=== PATIENT | female | born 1935 | race Caucasian/White ===

== ENCOUNTER 2018-11-27 11:40 | Emergency (ER) | payer OTHER ==
[~2018-11-27] VITALS: Ht 165.1 cm; Wt 73.5 kg
[2018-11-27 11:53] VITALS: BP_SYST 123
--- NOTE | 2018-11-27 12:00 | NUR ---
Patient presented to ER with abdominal pain. Patient A&Ox4, afebrile, denies N/V/D, pain 01/11. Patient states she has abdominal pain that radiates to back x1 week. Patietnbrought in by daughter, Patient states pain has been been increasing since whern she had outpatient Upper GI Scan. Patient has hx of liver stent
--- NOTE | 2018-11-27 12:02 | NUR ---
ER at bedside examining patient.
[2018-11-27] MEDS ORDERED: NACL 0.9% 1,000 ML IV ONE (12:06)
[2018-11-27] MEDS ORDERED: MORPHINE 4 MG/ML INJ. SYRINGE IVP ONE (12:15)
[2018-11-27] MEDS ORDERED: ONDANSETRON HCL 4 MG/2 ML VIAL IVP ONE (12:15)
--- NOTE | 2018-11-27 12:46 | NUR ---
REPORT TO DIMA KIM
[2018-11-27 13:13] LABS: BILIRUBIN,URINE NEGATIVE (NEGATIVE); BLOOD, URINE NEGATIVE (NEGATIVE); COLOR,URINE YELLOW (YELLOW); GLUCOSE,URINE NEGATIVE (NEGATIVE); KETONES,URINE NEGATIVE (NEGATIVE); LEUKOCYTE ESTERASE ,URINE TRACE (NEGATIVE); NITRITE, URINE NEGATIVE (NEGATIVE); PROTEIN URINE NEGATIVE (NEGATIVE); UROBILINOGEN,URINE 0.2 (0.2-1.0)
[2018-11-27 13:14] LABS: CLARITY/URINE SLIGHTLY HAZY (CLEAR)
[2018-11-27 13:15] LABS: HEMATOCRIT 29.8 % (36-48); HEMOGLOBIN 10.1 g/dL (12.0-16.0); MEAN CORPUSCULAR HEMOGLOBIN 36 pg (27-31); MEAN CORPUSCULAR HGB CONC 34 % (32-36); MEAN CORPUSCULAR VOLUME 105 fL (79.0-98.0); PLATELET COUNT (AUTO) 140 K/uL (130-430); RED BLOOD CELL COUNT(AUTO) 2.84 MIL/uL (4.2-6.2)
[2018-11-27 13:21] LABS: BACTERIA,URINE MODERATE /HPF (None Seen); RBC,URINE 0-3 /HPF (0-3)
[2018-11-27 13:38] LABS: CALCIUM 8.6 mg/dL (8.4-11.0); CHLORIDE 106 mmol/L (98-107); CREATININE 1.38 mg/dL (0.55-1.30); GLUCOSE 115 mg/dL (70-99); POTASSIUM 4.2 mmol/L (3.5-5.1); SODIUM SERUM 139 mmol/L (136-145); UREA NITROGEN, BLOOD 26 mg/dL (8-21)
[2018-11-27 13:39] LABS: ANION GAP < 3 (5-15)
--- NOTE | 2018-11-27 13:43 | NUR ---
Amanda marr in ED - 11/27/18 at [address] Cuevas at bedside discussing lab results with patient and daughter of patient.
--- NOTE | 2018-11-27 13:45 | NUR ---
Dr. Philip at bedside discussing lab results with patient and daughter of patient.
[2018-11-27 13:47] LABS: TOTAL BILIRUBIN 3.7 mg/dL (0.0-1.0)
[2018-11-27 13:48] LABS: ALANINE AMINOTRANSFERASE 30 U/L (12-78); ASPARTATE AMINOTRANSFERASE 66 U/L (10-37); LIPASE 144 U/L (73-393)
[2018-11-27 13:49] LABS: ATYPICAL LYMPHOCYTES % 0 % (0-0); BAND % (MANUAL) 0 % (0-6); BASOPHILS % (MANUAL) 0 % (0-2); EOSINOPHILS % (MANUAL) 7 % (0-7); LYMPHOCYTES % (MANUAL) 21 % (20-46); MONOCYTES % (MANUAL) 4 % (0-11)
[2018-11-27 14:45] VITALS: BP_SYST 123
--- NOTE | 2018-11-27 14:45 | NUR ---
Patient given written and verbal discharge instructions and verbalizes understanding. ER MD discussed with patient the results and treatment provided. Patient in stable condition. ID arm band removed. IV catheter removed intact and dressing applied, no active bleeding. Rx of Cipro, Flagyl given. Patient educated on pain management and to follow up with PMD. Pain Scale 3/10 tolerable for patient. Opportunity for questions provided and answered. Medication side effect fact sheet provided.
== END 2018-11-27 14:45 | disposition home or self-care (01) ==
LOC: SED 11:40
DX: K57.90 Diverticulosis of intestine, part unspecified, without perforation or abscess without bleeding (principal); Z90.710 Acquired absence of both cervix and uterus; Z91.041 Radiographic dye allergy status; Z91.013 Allergy to seafood; Z88.5 Allergy status to narcotic agent
CPT/HCPCS: 36415; 74176; 80053; 81000; 83690; 85007; 85027; 87086; 96374; 96375; 99284; J2270; J2405; J7030

== ENCOUNTER 2019-02-26 12:42 | Inpatient (IN) | payer OTHER ==
[~2019-02-26] VITALS: Ht 165.1 cm; Wt 74.5 kg
[2019-02-26 13:03] VITALS: BP_SYST 147
[2019-02-26] MEDS ORDERED: ASPIRIN 81 MG TAB.CHEW PO ONE (14:00)
[2019-02-26 14:36] LABS: BILIRUBIN,URINE 2+ (NEGATIVE); BLOOD, URINE NEGATIVE (NEGATIVE); CLARITY/URINE CLEAR (CLEAR); COLOR,URINE YELLOW (YELLOW); GLUCOSE,URINE NEGATIVE (NEGATIVE); KETONES,URINE NEGATIVE (NEGATIVE); LEUKOCYTE ESTERASE ,URINE NEGATIVE (NEGATIVE); NITRITE, URINE NEGATIVE (NEGATIVE); PH,URINE 5.5 (5.0-8.0); PROTEIN URINE NEGATIVE (NEGATIVE); UROBILINOGEN,URINE 0.2 (0.2-1.0)
[2019-02-26] MEDS ORDERED: FURO40SO5 PO (14:52)
[2019-02-26] MEDS ORDERED: MECL12.584 PO (14:52)
[2019-02-26] MEDS ORDERED: LACT10SO6 PO (14:52)
[2019-02-26] MEDS ORDERED: TIMO5DRO15 EACH EYE (14:52)
[2019-02-26] MEDS ORDERED: RIFA550T5 PO (14:52)
[2019-02-26] MEDS ORDERED: SPIR25TA6 PO (14:52)
[2019-02-26] MEDS ORDERED: PRO40 PO (14:52)
[2019-02-26 15:02] LABS: BACTERIA,URINE FEW /HPF (None Seen); RBC,URINE 0-3 /HPF (0-3)
[2019-02-26 15:03] LABS: MUCUS,URINE 1+ /LPF (None Seen)
[2019-02-26 15:28] LABS: BASOPHILS % (AUTO) 0.7 % (0.0-2.0); EOSINOPHILS # (AUTO) 0.1 K/uL (0.0-0.4); EOSINOPHILS % (AUTO) 2.9 % (0.0-4.0); HEMOGLOBIN 9.6 g/dL (12.0-16.0); LYMPHOCYTES # (AUTO) 0.6 K/uL (1.0-5.5); LYMPHOCYTES % (AUTO) 21.2 % (20.5-51.5); MEAN CORPUSCULAR HEMOGLOBIN 36 pg (27-31); MEAN CORPUSCULAR HGB CONC 34 % (32-36); MEAN CORPUSCULAR VOLUME 105 fL (79.0-98.0); MONOCYTES # (AUTO) 0.4 K/uL (0.0-1.0); MONOCYTES % (AUTO) 12.1 % (1.7-9.3); NEUTROPHILS # (AUTO) 1.8 K/uL (1.8-7.7); NEUTROPHILS % (AUTO) 63.1 % (40.0-70.0); PLATELET COUNT (AUTO) 67 K/uL (130-430); RED BLOOD CELL COUNT(AUTO) 2.68 MIL/uL (4.2-6.2); RED CELL DISTRIBUTION WIDTH 18.7 % (9.0-15.0); WHITE BLOOD COUNT (AUTO) 2.9 K/uL (4.8-10.8)
[2019-02-26] MEDS ORDERED: LEVOFLOXACIN 500 MG/D5W 100 ML IV ONE (15:30)
[2019-02-26 16:07] LABS: ANION GAP 6 (5-15); CALCIUM 8.2 mg/dL (8.4-11.0); CHLORIDE 102 mmol/L (98-107); CREATININE 1.39 mg/dL (0.55-1.30); GLUCOSE 181 mg/dL (70-99); POTASSIUM 3.9 mmol/L (3.5-5.1); SODIUM SERUM 136 mmol/L (136-145); UREA NITROGEN, BLOOD 24 mg/dL (8-21)
[2019-02-26 16:12] LABS: ALANINE AMINOTRANSFERASE 45 U/L (12-78); ALBUMIN 1.8 g/dL (3.4-4.8); ASPARTATE AMINOTRANSFERASE 108 U/L (10-37); TOTAL BILIRUBIN 4.5 mg/dL (0.0-1.0)
[2019-02-26 16:13] LABS: INR 1.7 (0.8-1.2)
[2019-02-26] MEDS ORDERED: NACL 0.9% 2,250 ML IV ONE (16:30)
[2019-02-26] MEDS ORDERED: LACTULOSE 20 GM/30 ML UDC PO ONE (16:30)
[2019-02-26 22:20] VITALS: BP_SYST 113
[2019-02-26] MEDS: RIFAXIMIN 550 MG TABLET PO SCH (23:36)
[2019-02-27 00:05] VITALS: BP_SYST 139
[2019-02-27] MEDS: cefTRIAXone 1 GM IVPB PREMIX 50 ML IV SCH ×2 (06:00→13:32)
[2019-02-27 07:23] LABS: BASOPHILS % (AUTO) 1.1 % (0.0-2.0); EOSINOPHILS # (AUTO) 0.1 K/uL (0.0-0.4); EOSINOPHILS % (AUTO) 2.7 % (0.0-4.0); HEMATOCRIT 26.3 % (36-48); HEMOGLOBIN 9.1 g/dL (12.0-16.0); LYMPHOCYTES # (AUTO) 0.6 K/uL (1.0-5.5); LYMPHOCYTES % (AUTO) 27.1 % (20.5-51.5); MEAN CORPUSCULAR HEMOGLOBIN 36 pg (27-31); MEAN CORPUSCULAR HGB CONC 35 % (32-36); MEAN CORPUSCULAR VOLUME 104 fL (79.0-98.0); MONOCYTES # (AUTO) 0.3 K/uL (0.0-1.0); NEUTROPHILS # (AUTO) 1.2 K/uL (1.8-7.7); NEUTROPHILS % (AUTO) 57.1 % (40.0-70.0); RED BLOOD CELL COUNT(AUTO) 2.53 MIL/uL (4.2-6.2); RED CELL DISTRIBUTION WIDTH 19.1 % (9.0-15.0); WHITE BLOOD COUNT (AUTO) 2.1 K/uL (4.8-10.8)
[2019-02-27 07:55] VITALS: BP_SYST 151
[2019-02-27 08:24] LABS: PLATELET COUNT (AUTO) 55 K/uL (130-430)
[2019-02-27] MEDS: SPIRONOLACTONE 25 MG TABLET (ALDACTONE) PO SCH (09:00)
[2019-02-27 09:28] LABS: ANION GAP 3 (5-15); CHLORIDE 105 mmol/L (98-107); GLUCOSE 96 mg/dL (70-99); POTASSIUM 3.8 mmol/L (3.5-5.1); SODIUM SERUM 136 mmol/L (136-145)
[2019-02-27 09:29] LABS: ASPARTATE AMINOTRANSFERASE 109 U/L (10-37); CALCIUM 7.9 mg/dL (8.4-11.0); CREATININE 1.36 mg/dL (0.55-1.30); TOTAL BILIRUBIN 3.4 mg/dL (0.0-1.0); UREA NITROGEN, BLOOD 21 mg/dL (8-21)
[2019-02-27 09:30] LABS: ALANINE AMINOTRANSFERASE 52 U/L (12-78); ALBUMIN 1.6 g/dL (3.4-4.8)
[2019-02-27 09:31] LABS: CHOLESTEROL 136 mg/dL (<200); HDL CHOLESTEROL 17 mg/dL (>55); LDL CHOLESTEROL 82 mg/dL (<100); TRIGLYCERIDES 55 mg/dL (30-150)
[2019-02-27 10:45] VITALS: BP_SYST 120
[2019-02-27] MEDS: RIFAXIMIN 550 MG TABLET PO SCH ×2 (11:01→21:01)
[2019-02-27] MEDS: LACTULOSE 20 GM/30 ML UDC PO SCH ×3 (11:01→21:01)
[2019-02-27] MEDS: PANTOPRAZOLE SODIUM 40 MG TAB PO SCH (11:02)
[2019-02-27 12:00] VITALS: BP_SYST 177
[2019-02-27 16:12] VITALS: BP_SYST 122
[2019-02-27 19:25] VITALS: BP_SYST 120
[2019-02-27] MEDS: TIMOLOL MALEATE 0.25% OPHTHALMIC DROPS 5 ML OP SCH (21:02)
[2019-02-28 01:25] VITALS: BP_SYST 121
[2019-02-28 01:32] VITALS: BP_SYST 106
[2019-02-28 07:37] VITALS: BP_SYST 113
[2019-02-28] MEDS: LACTULOSE 20 GM/30 ML UDC PO SCH (08:41)
[2019-02-28] MEDS: RIFAXIMIN 550 MG TABLET PO SCH (08:41)
[2019-02-28] MEDS: PANTOPRAZOLE SODIUM 40 MG TAB PO SCH (08:42)
[2019-02-28] MEDS: SPIRONOLACTONE 25 MG TABLET (ALDACTONE) PO SCH (08:42)
[2019-02-28] MEDS: TIMOLOL MALEATE 0.25% OPHTHALMIC DROPS 5 ML OP SCH (08:43)
[2019-02-28] MEDS ORDERED: LEVO500T89 PO (09:05)
[2019-02-28 12:05] VITALS: BP_SYST 114
[2019-02-28 12:53] VITALS: BP_SYST 114
[2019-02-28 12:55] VITALS: BP_SYST 114
[2019-02-28] MEDS ORDERED: cefTRIAXone 1 GM IVPB PREMIX 50 ML IV SCH (13:00)
== END 2019-02-28 13:45 | disposition home or self-care (01) | DRG 690 ==
LOC: SED 12:42 → STU 17:49
PROVIDERS: ADMIT Internal Medicine Hospice and Palliative Medicine; ATTEND Internal Medicine Hospice and Palliative Medicine
DX: N39.0 Urinary tract infection, site not specified (principal); D61.818 Other pancytopenia; E87.2 Acidosis; D68.9 Coagulation defect, unspecified; E44.1 Mild protein-calorie malnutrition; K72.90 Hepatic failure, unspecified without coma; R07.89 Other chest pain; D69.6 Thrombocytopenia, unspecified; N28.9 Disorder of kidney and ureter, unspecified; K74.60 Unspecified cirrhosis of liver; Z79.899 Other long term (current) drug therapy; Z91.041 Radiographic dye allergy status; Z88.5 Allergy status to narcotic agent; Z91.013 Allergy to seafood
CPT/HCPCS: 36415; 71045; 76700-TC; 80053; 80061; 81000-TC; 82140-TC; 83605; 84484; 85025; 85610-TC; 85730-TC; 87040-TC; 87081; 87086; 87186-TC; 93005; 93306; 96361; 96365; 99285; G0378; J0696; J1956

== ENCOUNTER 2019-05-07 10:20 | Inpatient (IN) | payer OTHER, MEDICAID ==
[~2019-05-07] VITALS: Ht 165.1 cm; Wt 74.8 kg
[~2019-05-07 10:20] MED LIST: FURO40SO5 PO; LACT10SO6 PO; LEVO500T89 PO; MECL12.584 PO; PRO40 PO; RIFA550T5 PO; SPIR25TA6 PO; TIMO5DRO15 EACH EYE
[2019-05-07 10:25] VITALS: BP_SYST 117
--- NOTE | 2019-05-07 10:28 | NUR ---
Patient to ER bed 7 to gown for evaluation. Side rails up.
[2019-05-07] MEDS ORDERED: NACL 0.9% 1,000 ML IV ONE (10:32)
--- NOTE | 2019-05-07 10:35 | NUR ---
ER at bedside examining patient.
--- NOTE | 2019-05-07 10:37 | NUR ---
pt arrives via BLS d/t BLE edema +2, and BLE 10/10 pain. Pt is AAOx3. Currently unable to ambulate s/t pain. Pt has hx of liver cirrhosis. BUE and BLE brusing noted. Will continue to monitor
[2019-05-07] MEDS ORDERED: FUROSEMIDE 40 MG/4 ML VIAL IVP ONE (10:45)
[2019-05-07 11:53] LABS: HEMATOCRIT 25.6 % (36-48); HEMOGLOBIN 8.5 g/dL (12.0-16.0); MEAN CORPUSCULAR HEMOGLOBIN 34 pg (27-31); MEAN CORPUSCULAR HGB CONC 33 % (32-36); MEAN CORPUSCULAR VOLUME 102 fL (79.0-98.0); PLATELET COUNT (AUTO) 77 K/uL (130-430); RED CELL DISTRIBUTION WIDTH 18.2 % (9.0-15.0); WHITE BLOOD COUNT (AUTO) 3.1 K/uL (4.8-10.8)
--- NOTE | 2019-05-07 12:00 | NUR ---
# 24 gauge angiocath placed to left chest. Use of asceptic technique. Opsite placed over site. Blood return noted. Blood for lab drawn from site. Flushed with 10 cc of normal saline. No evidence of infiltration noted. Patient tolerated well.
[2019-05-07 12:05] LABS: ANION GAP 7 (5-15); CALCIUM 8.3 mg/dL (8.4-11.0); CHLORIDE 103 mmol/L (98-107); CREATININE 2.49 mg/dL (0.55-1.30); GLUCOSE 100 mg/dL (70-99); POTASSIUM 4.2 mmol/L (3.5-5.1); SODIUM SERUM 137 mmol/L (136-145); UREA NITROGEN, BLOOD 62 mg/dL (8-21)
[2019-05-07 12:09] LABS: INR 1.6 (0.8-1.2); PROTHROMBIN TIME 15.6 SECS (9.5-12.5)
--- NOTE | 2019-05-07 12:15 | NUR ---
urine collected and sent to the lab
[2019-05-07 12:19] LABS: ALANINE AMINOTRANSFERASE 38 U/L (12-78); ALBUMIN 1.9 g/dL (3.4-4.8); AMYLASE 76 U/L (0-100); ASPARTATE AMINOTRANSFERASE 66 U/L (10-37); LIPASE 169 U/L (73-393); TOTAL BILIRUBIN 4.4 mg/dL (0.0-1.0)
[2019-05-07 12:20] LABS: ALCOHOL, BLOOD < 3 mg/dL (<10)
[2019-05-07 12:28] LABS: ATYPICAL LYMPHOCYTES % 0 % (0-0); BAND % (MANUAL) 0 % (0-6); BASOPHILS % (MANUAL) 0 % (0-2); EOSINOPHILS % (MANUAL) 2 % (0-7); LYMPHOCYTES % (MANUAL) 16 % (20-46); MONOCYTES % (MANUAL) 5 % (0-11)
[2019-05-07 13:13] LABS: BILIRUBIN,URINE NEGATIVE (NEGATIVE); BLOOD, URINE NEGATIVE (NEGATIVE); CLARITY/URINE CLEAR (CLEAR); COLOR,URINE YELLOW (YELLOW); GLUCOSE,URINE NEGATIVE (NEGATIVE); KETONES,URINE NEGATIVE (NEGATIVE); LEUKOCYTE ESTERASE ,URINE 1+ (NEGATIVE); NITRITE, URINE NEGATIVE (NEGATIVE); PROTEIN URINE NEGATIVE (NEGATIVE); UROBILINOGEN,URINE 0.2 (0.2-1.0)
[2019-05-07 13:25] LABS: BACTERIA,URINE FEW /HPF (None Seen); MUCUS,URINE 1+ /LPF (None Seen); RBC,URINE 0-3 /HPF (0-3)
[2019-05-07 13:42] LABS: BARBITURATE, URINE NEGATIVE (NEG <=200); BENZODIAZEPINE, URINE NEGATIVE (NEG <=150); CANNABINOID, URINE NEGATIVE (NEG <=50); COCAINE, URINE NEGATIVE (NEG <=150); METHAMPHETAMINES SCREEN,URINE NEGATIVE (NEG <=500); OPIATE, URINE NEGATIVE (NEG <=100); PHENCYCLIDINE SCREEN,URINE NEGATIVE (NEG <=25); UR TRICYCLIC ANTIDEPRESSANTS NEGATIVE (NEG <=300); URINE AMPHETAMINE NEGATIVE (NEG <=500); URINE METHADONE NEGATIVE (NEG <=200); URINE OXYCODONE SCREEN NEGATIVE (NEG <=100); URINE PROPOXYPHENE SCREEN NEGATIVE (NEG <=300)
[2019-05-07] MEDS ORDERED: cefTRIAXone 1 GM IVPB PREMIX 50 ML IV ONE (13:45)
--- NOTE | 2019-05-07 14:00 | NUR ---
pt is resting in [facility]
--- NOTE | 2019-05-07 15:30 | NUR ---
Called for a tele bed spoke w/ Tobin KIM. Stated that she will call back
[2019-05-07] MEDS ORDERED: LISI-209 PO (16:00)
[2019-05-07] MEDS ORDERED: MAGN400T10 PO (16:00)
--- NOTE | 2019-05-07 16:00 | NUR ---
Medication reconciliation completed with information provided by pt. Any prior medication reconciliation on file was reviewed and corrected.
[2019-05-07 17:00] VITALS: BP_SYST 125
--- NOTE | 2019-05-07 17:00 | NUR ---
Note Pt arrived on the floor from ED via gurney to room - assisted to bed. Pt was oriented to room, nursing routines and procedures. Questions/concerns were answered at this time. Call light within reach.
[2019-05-07 17:08] VITALS: BP_SYST 125
[2019-05-07] MEDS: FUROSEMIDE 40 MG/4 ML VIAL IVP SCH (19:00)
--- NOTE | 2019-05-07 19:00 | NUR ---
Note Pt's admission assessment was completed with assistance from pt's 2 daughters. Pt's skin very fragile for IV draws and BP taking. Pt sat up in bed and ate her dinner with assistance from her family (4 family members at bedside at this time). Pt's lower extremity part of bed elevated for comfort. Pt was checked on q1' and PRN all shift for needs and care. Call light within reach. Pt had tele unit attached on admission to floor at 1700. Tele unit at this time is attached and intact. IV in left upper chest wall intact and patent at this time. Pt next to nurses' station all shift for needs and care.
--- NOTE | 2019-05-07 19:55 | NUR ---
Initial note: Received report from dayshift RN. Patient is awake in bed, family members present at bedside. Alert and oriented to name, place, and situation. 24 gauge IV present to left upper chest, site flushes well, no infiltration. Bruising noted to bilateral upper and lower extremities, patient's skin is fragile. Call light is with patient. Safety and fall precautions in place. Will continue with plan of care.
--- NOTE | 2019-05-07 20:20 | NUR ---
CONSULT: CONSULT CALLED FOR DR. MICHAEL I SPOKE WITH ANSLEY NICHOLS REASON FOR CONSULT: CHF REQUESTING CONSULT: DR. CHU BELT PRESS OPERATOR PHONE NUMBER: [phone]
[2019-05-07 20:45] VITALS: BP_SYST 113
[2019-05-07] MEDS: PANTOPRAZOLE SODIUM 40 MG TAB PO SCH (21:00)
[2019-05-07] MEDS: LACTULOSE 20 GM/30 ML UDC PO SCH (21:00)
[2019-05-07] MEDS: RIFAXIMIN 550 MG TABLET PO SCH (21:00)
--- NOTE | 2019-05-07 23:20 | NUR ---
Rounds: Patient is resting in bed, does not show any acute distress. Even and unlabored respirations. Call light with patient. Will continue to monitor.
[2019-05-08 00:29] VITALS: BP_SYST 114
--- NOTE | 2019-05-08 01:38 | NUR ---
CONSULTATION PAGED/CALLED Reason for Consultation: LIVER CIRHOSIS Person Who was Notified: JAY Consulting Physician: SHARA LEAHY TROUNG IS WELDER PRODUCTION LINE COMBINATION Electric Blanket Wirer Specialty: Ordering Physician: KIMBERLEY
--- NOTE | 2019-05-08 03:30 | NUR ---
Rounds: Patient is asleep, no acute distress. Tolerating room air. Call light with patient. Will continue monitoring.
[2019-05-08] MEDS: FUROSEMIDE 40 MG/4 ML VIAL IVP SCH ×2 (06:37→20:55)
--- NOTE | 2019-05-08 06:48 | NUR ---
Closing note: Patient is resting in bed, no acute distress. Tolerating room air. IV site to left upper chest is patent and benign. All needs met. Safety, fall precautions maintained. Hourly rounding performed throughout shift. Will endorse care to dayshift RN.
--- NOTE | 2019-05-08 07:50 | NUR ---
AM ASSESSMENT. PT ALERT, ORIENTED, BODY WITH GENERALIZED WEAKNESS, HELPED PT TURNED IN BED, SAT HER UP AT BREAKFAST HOUR, CALL LIGHT IN REACH, CONTINUE TO MONITOR.
[2019-05-08 08:00] VITALS: BP_SYST 115
[2019-05-08] MEDS: LACTULOSE 20 GM/30 ML UDC PO SCH ×3 (08:18→20:57)
[2019-05-08] MEDS: SPIRONOLACTONE 25 MG TABLET (ALDACTONE) PO SCH (08:19)
[2019-05-08] MEDS: PANTOPRAZOLE SODIUM 40 MG TAB PO SCH ×2 (08:19→20:55)
[2019-05-08] MEDS: LISINOPRIL 5 MG TABLET PO SCH (08:19)
[2019-05-08] MEDS: RIFAXIMIN 550 MG TABLET PO SCH ×2 (08:24→20:55)
--- NOTE | 2019-05-08 10:49 | NUR ---
CONSULT NEPHROLOGY RENAL FAILURE DR HILL [phone] S/W SALVADOR NICHOLS
--- NOTE | 2019-05-08 11:08 | NUR ---
ROOM CHANGE. TRANSFERRED PT TO ROOM 104-B, HER DAUGHTERS AWARE.
[2019-05-08 12:00] VITALS: BP_SYST 119
[2019-05-08 16:00] VITALS: BP_SYST 117
--- NOTE | 2019-05-08 16:00 | NUR ---
HYGIENE. PT VERBALIZED THAT SHE HAD A BOWEL MOVEMENT, PERINEAL CARE DONE, WASHED WITH SOAPY TOWEL, RINSED SKIN AND PAT DRY. CLEAN SHEETS PROVIDED, TURNED PT TO HER SIDE.
--- NOTE | 2019-05-08 18:50 | NUR ---
PICC. TIME OUT DONE AT BEDSIDE, CONSENT SIGNED, WITH FAMILY WATCHING IN THE ROOM.
--- NOTE | 2019-05-08 20:00 | NUR ---
INITIAL NOTES; PT IS ALERT , AWAKE AND ORIENTED ; NOT IN ANY ACUTE DISTRESS; VITALS ARE STABLE ; DAUGHTER AT BEDSIDE ; PICC LINE WAS INSERTED , PER PICC LINE NURSE PICC OK TO USE X RAY WAS DONE . DCD IV TO THE LEFT BREAST ;DRESSING APPLIED , PT IS INCONTINENT WITH LOOSE BM ; PT CLEANED ; LINEN AND GOWN CHANGED ; ASSESSMENT DONE ; PT HAS SKIN TEAR TO SHERIN R FA ,4 CM X 2.6 CM CLEANED WITH NS APPLIED OIL EMULSION DRESSING AND COVERED WITH NON ADHERENT DRESSING ; PER DAUGHTER IT HAPPENED IN ER , ALSO NOTICED ANOTHER DRESSING ON THE R AC , PT REFUSED TO OPEN IT PER DAUGHTER IT ALSO HAPPENED IN ER , UNABLE TO SEE SITE . BED IN LOW AND LOCK POSITION , CALL ADAMS IN REACH ; ENCOURAGED PT TO CALL FOR ANY HELP ;WILL CONTINUE TO MONITOR PT . NOTICED THAT PT IS HAVING PAIN WHILE TOUCHING HER OTHERWISE SHE IS COMFORTABLE .
[2019-05-08 20:55] VITALS: BP_SYST 118
--- NOTE | 2019-05-08 21:00 | NUR ---
MEDICATION: DUE MEDS GIVEN ; PT IS COMFORTABLE ; EDUCATED PT ON LASIX , NO QUESTIONS AT THIS TIME ; WILL CONTINUE TO MONITOR PT . Addendum: 05/09/19 at 0223 by Monroe Sharma RN PT REFUSED LACTULOSE , PT STATED SHE HAD MULTIPLE LOOSE BM AND SHE IS TIRED AT THIS TIME SHE STATED SHE WILL TAKE IT IN MORNING AGAIN .
--- NOTE | 2019-05-08 22:40 | NUR ---
BM : PT IS INCONTINENT WITH LOOSE BM ; PT CLEANED , LINEN REMOVED . PT TURNED AND REPOSITIONED ; WILL CONTINUE TO MONITOR PT .
--- NOTE | 2019-05-09 00:10 | NUR ---
RN NOTES: PT IS SLEEPING , NOT IN ANY ACUTE DISTRESS ; RESPIRATION IS EVEN AND NONLABORED ; WILL CONTINUE TO MONITOR PT .
[2019-05-09 00:46] VITALS: BP_SYST 128
--- NOTE | 2019-05-09 02:24 | NUR ---
RN ROUNDS: PT IS SLEEPING , RESPIRATION IS EVEN AND NON LABORED ; WILL CONTINUE TO MONITOR PT .
--- NOTE | 2019-05-09 04:30 | NUR ---
RN ROUNDS: PT IS SLEEPING , RESPIRATION IS EVEN AND NON LABORED ; NOT IN ANY ACUTE DISTRESS ;WILL CONTINUE TO MONITOR PT .
[2019-05-09] MEDS: FUROSEMIDE 40 MG/4 ML VIAL IVP SCH ×2 (06:19→18:06)
--- NOTE | 2019-05-09 06:20 | NUR ---
MEDICATION: DUE MEDS GIVEN , PT WAS SLEEPING , EASILY AROUSABLE ; VITALS ARE STABLE ; WILL CONTINUE TO MONITOR PT .
--- NOTE | 2019-05-09 07:30 | NUR ---
CLOSING NOTES: PT IS COMFORTABLE ; NOT IN ANY ACUTE DISTRESS ; ALL NEED ATTENDED . WILL CONTINUE TO MONITOR AND WILL ENDORSE TO NEXT SHIFT NURSE .
--- NOTE | 2019-05-09 07:55 | NUR ---
Opening Note Received report from RN. Pt AAO eating breakfast. Also just informed about abdominal ultrasound, instructed pt about NPO status. Pt states no pain or distress at this time.
[2019-05-09 08:00] VITALS: BP_SYST 113
--- NOTE | 2019-05-09 08:55 | NUR ---
Nutrition Update Shay Scale 16 noted. Pt admitted for anasarca, liver cirrhosis. Diet: 2 gm Na BMI: 27.5 kg/m2 RD to follow per nutrition care standards.
[2019-05-09] MEDS: SPIRONOLACTONE 25 MG TABLET (ALDACTONE) PO SCH (09:00)
[2019-05-09] MEDS: RIFAXIMIN 550 MG TABLET PO SCH ×2 (09:00→20:14)
[2019-05-09] MEDS: LISINOPRIL 5 MG TABLET PO SCH (09:00)
[2019-05-09] MEDS: LACTULOSE 20 GM/30 ML UDC PO SCH ×3 (09:00→20:15)
[2019-05-09] MEDS: PANTOPRAZOLE SODIUM 40 MG TAB PO SCH ×2 (09:00→20:14)
[2019-05-09 10:49] LABS: ANION GAP 6 (5-15); CALCIUM 8.2 mg/dL (8.4-11.0); CHLORIDE 105 mmol/L (98-107); CREATININE 1.84 mg/dL (0.55-1.30); GLUCOSE 205 mg/dL (70-99); POTASSIUM 4.6 mmol/L (3.5-5.1); SODIUM SERUM 139 mmol/L (136-145); UREA NITROGEN, BLOOD 52 mg/dL (8-21)
[2019-05-09 11:02] LABS: BASOPHILS % (AUTO) 0.7 % (0.0-2.0); EOSINOPHILS # (AUTO) 0.1 K/uL (0.0-0.4); EOSINOPHILS % (AUTO) 2.3 % (0.0-4.0); HEMATOCRIT 22.9 % (36-48); HEMOGLOBIN 7.7 g/dL (12.0-16.0); LYMPHOCYTES # (AUTO) 0.4 K/uL (1.0-5.5); LYMPHOCYTES % (AUTO) 16.5 % (20.5-51.5); MEAN CORPUSCULAR HEMOGLOBIN 35 pg (27-31); MEAN CORPUSCULAR HGB CONC 34 % (32-36); MEAN CORPUSCULAR VOLUME 104 fL (79.0-98.0); MONOCYTES # (AUTO) 0.3 K/uL (0.0-1.0); MONOCYTES % (AUTO) 10.1 % (1.7-9.3); NEUTROPHILS # (AUTO) 1.8 K/uL (1.8-7.7); NEUTROPHILS % (AUTO) 70.4 % (40.0-70.0); PLATELET COUNT (AUTO) 63 K/uL (130-430); RED CELL DISTRIBUTION WIDTH 18.8 % (9.0-15.0)
[2019-05-09 11:04] LABS: ALANINE AMINOTRANSFERASE 31 U/L (12-78); ALBUMIN 1.6 g/dL (3.4-4.8); ASPARTATE AMINOTRANSFERASE 60 U/L (10-37); THYROID STIMULATING HORMONE 2.15 uIu/mL (0.36-3.74); TOTAL BILIRUBIN 3.5 mg/dL (0.0-1.0)
[2019-05-09 11:21] VITALS: BP_SYST 111
[2019-05-09 11:22] LABS: WHITE BLOOD COUNT (AUTO) 2.6 K/uL (4.8-10.8)
--- NOTE | 2019-05-09 12:00 | NUR ---
Pt resting comfortably in bed. Equal chest rise and fall. No acute distress noted.
--- NOTE | 2019-05-09 14:58 | NUR ---
Nutrition Assessment (short note d/t high patient load) A - RD reviewed pertinent nutrition-related info via EMR (physician notes/nursing notes/labs/meds/nursing care trends/care activity). Admission Dx: Anasarca, liver cirrhosis Pt also found w/ ARF per physician notes PMH: liver cirrhosis per physician notes Current Diet Order/Nutrition Support: 2 gm Na x2 days Ht: 65", 5';5" Wt: 165#/75 kg IBW: 125#/57 kg %IBW: 132% UBW: 170#/77 kg %UBW: 97% BMI: 27.5 kg/m2 (overweight, but appropriate for geriatric age) Subjective Info: Pt seen high risk d/t Dx of ARF. Daughter at bedside answered RD verbal interview questions as pt prefers to speak in [place]. Daughter stated that pt usually has a small appetite and does not eat much. MVI and occasional Boost ONS supplementation use VISITOR INFORMATION ASSISTANT. Anthropometrics verified. MIDDLE SCHOOL GUIDANCE COUNSELOR stated pt is NPO d/t pending test -- abd US per physician order. Allergy to fish/shellfish confirmed. Per EMR, PO intake records indicate 50% average x4 meals, x1 refusal. ESTIMATED NUTRITIONAL NEEDS CALORIES/DAY: 9364-5382 kcal/day (25-30 kcal/kg Adj IBW for geriatric maintenance) PROTEIN/DAY: 49-61 gm/day (0.8-1 gm/kg Adj IBW for ARF, geriatric maintenance) FLUID/DAY: Per physician for ARF D - Altered nutrition-related labs related to renal dysfunction as evidenced by abnormal BUN/CRE lab values. Inadequate nutritional intakes related to lack of appetite as evidenced by fair PO intake records. I - Recommend continuing 2 gm Na diet M - Monitor appetite and PO intakes w/ goal of pt meeting at least 75% of estimated nutritional needs, labs trending WNL, normal GI function, and skin integrity/wt maintenance E - Moderate risk; RD to F/U within 3-5 days
[2019-05-09 15:05] VITALS: BP_SYST 117
--- NOTE | 2019-05-09 15:06 | NUR ---
Dietitian Recommendations * Recommend continuing 2 gm Na diet LP, RD Please refer to Nutrition Assessment for details.
[2019-05-09] MEDS: cefTRIAXone 1 GM IVPB PREMIX 50 ML IV SCH (15:40)
--- NOTE | 2019-05-09 16:30 | NUR ---
Provided wound care and education to pt and family. Tolerated well.
[2019-05-09] MEDS: HYDROcodone/ACETAMIN 5-325 MG TAB (NORCO/ VICODIN) PO PRN (18:08)
--- NOTE | 2019-05-09 18:39 | NUR ---
Closing Pt up in bed eating dinner. Provided pt with PRN pain medication, educated pt and family to look out for signs of reaction, states understanding. No other complaints per pt.
[2019-05-09 19:30] VITALS: BP_SYST 110
--- NOTE | 2019-05-09 19:30 | NUR ---
INITIAL NOTES PATIENT IS SITTING IN BED AND STABLE. NO S/S OF RESPIRATORY DISTRESS NOTED. FAMILY IS BY BEDSIDE. PLAN OF CARE IS DISCUSSED WITH FAMILY AND PATIENT AT THIS TIME. PATIENT SUCCESSFULLY DEMONSTRATES USAGE OF CALL LIGHT AT THIS TIME. BED IS LOCKED, ALARMED, AND AT THE LOWEST POSITION. FALL, SAFETY, ASPIRATION, AND RESPIRATORY PRECAUTIONS WILL BE IN PLACE THROUGHOUT THE SHIFT. PATIENT VERBALIZES NO PAIN.
--- NOTE | 2019-05-09 21:30 | NUR ---
ROUNDING PATIENT IS SLEEPING IN BED AND STABLE. NO S/S OF RESPIRATORY DISTRESS NOTED. CALL LIGHT IN REACH. BED IS LOCKED, ALARMED, AND AT THE LOWEST POSITION.
[2019-05-10 00:05] VITALS: BP_SYST 105
[2019-05-10] MEDS: FUROSEMIDE 40 MG/4 ML VIAL IVP SCH ×2 (06:46→18:06)
[2019-05-10 07:12] LABS: BASOPHILS % (AUTO) 0.7 % (0.0-2.0); EOSINOPHILS # (AUTO) 0.1 K/uL (0.0-0.4); EOSINOPHILS % (AUTO) 3.1 % (0.0-4.0); HEMATOCRIT 22.9 % (36-48); HEMOGLOBIN 7.7 g/dL (12.0-16.0); LYMPHOCYTES # (AUTO) 0.6 K/uL (1.0-5.5); MEAN CORPUSCULAR HEMOGLOBIN 35 pg (27-31); MEAN CORPUSCULAR HGB CONC 34 % (32-36); MEAN CORPUSCULAR VOLUME 103 fL (79.0-98.0); MONOCYTES # (AUTO) 0.3 K/uL (0.0-1.0); NEUTROPHILS # (AUTO) 1.4 K/uL (1.8-7.7); PLATELET COUNT (AUTO) 52 K/uL (130-430); RED BLOOD CELL COUNT(AUTO) 2.21 MIL/uL (4.2-6.2); RED CELL DISTRIBUTION WIDTH 18.7 % (9.0-15.0); WHITE BLOOD COUNT (AUTO) 2.3 K/uL (4.8-10.8)
--- NOTE | 2019-05-10 07:20 | NUR ---
CLOSING NOTES PATIENT IS STABLE AND LAYING IN BED. NO S/S OF RESPIRATORY DISTRESS NOTED. CALL LIGHT IN REACH. BED IS LOCKED, ALARMED, AND AT THE LOWEST POSITION. FALL, SAFETY, ASPIRATION, AND RESPIRATORY PRECAUTIONS HAS BEEN PLACED THROUGHOUT THE SHIFT. REPORT WAS GIVEN TO JUDY GARCIA BY BEDSIDE.
--- NOTE | 2019-05-10 07:22 | NUR ---
INITIAL NOTE PT RESTING QUIETLY IN BED, NO ACUTE DISTRESS NOTED, BREATHING EVEN AND UNLABORED. IV SALINE LOCKED. CALL LIGHT WITHIN REACH, BED IN LOW AND LOCKED POSITION WITH BED ALARM ON.
[2019-05-10 07:24] LABS: ALANINE AMINOTRANSFERASE 30 U/L (12-78); ALBUMIN 1.4 g/dL (3.4-4.8); ANION GAP 3 (5-15); ASPARTATE AMINOTRANSFERASE 60 U/L (10-37); CALCIUM 8.5 mg/dL (8.4-11.0); CHLORIDE 106 mmol/L (98-107); CREATININE 1.73 mg/dL (0.55-1.30); GLUCOSE 108 mg/dL (70-99); POTASSIUM 4.3 mmol/L (3.5-5.1); SODIUM SERUM 136 mmol/L (136-145); TOTAL BILIRUBIN 3.6 mg/dL (0.0-1.0); UREA NITROGEN, BLOOD 51 mg/dL (8-21)
[2019-05-10 07:56] LABS: NEUTROPHILS % (AUTO) 58.2 % (40.0-70.0)
[2019-05-10 08:00] VITALS: BP_SYST 113
[2019-05-10] MEDS: cefTRIAXone 1 GM IVPB PREMIX 50 ML IV SCH (09:03)
[2019-05-10] MEDS: SPIRONOLACTONE 25 MG TABLET (ALDACTONE) PO SCH (09:03)
[2019-05-10] MEDS: LACTULOSE 20 GM/30 ML UDC PO SCH ×3 (09:03→20:21)
[2019-05-10] MEDS: RIFAXIMIN 550 MG TABLET PO SCH ×2 (09:03→20:21)
[2019-05-10] MEDS: PANTOPRAZOLE SODIUM 40 MG TAB PO SCH ×2 (09:04→20:21)
[2019-05-10] MEDS: LISINOPRIL 5 MG TABLET PO SCH (09:04)
--- NOTE | 2019-05-10 09:30 | NUR ---
INCONTINENT PT HAD BOWEL MOVEMENT, CHANGED PT. REPOSITIONED FOR COMFORT. PT TOLERATED WELL.
--- NOTE | 2019-05-10 10:12 | NUR ---
DR. CHU SPOKE WITH MD AT NURSES STATION. INFORMED MD THAT PT STATES THAT SHE HAS NOT BEEN ABLE TO WALK IN 2 MONTHS AND HAS HISTORY OF FALLS. MD TO POSTPONE DISCHARGE AND ORDER STAT PHYSICAL THERAPY EVALUATIONS FOR POSSIBLE SNF PLACEMENT.
--- NOTE | 2019-05-10 11:30 | NUR ---
RN ROUNDS PT RESTING QUIETLY IN BED, FAMILY AT BEDSIDE. WILL CONTINUE TO MONITOR.
--- NOTE | 2019-05-10 12:15 | NUR ---
PHYSICAL THERAPY PHYSICAL THERAPY AT BEDSIDE. PER PHYSICAL THERAPY, PT WAS UNABLE TO SUCCESSFULLY GET OUT OF BED. PT HAS LOWER EXTREMITY PAIN AND WEAKNESS.
[2019-05-10 12:47] VITALS: BP_SYST 110
--- NOTE | 2019-05-10 13:30 | NUR ---
RN ROUNDS PT AWAKE, SPEAKING WITH FAMILY AT BEDSIDE. NO CHANGE IN ASSESSMENT.
[2019-05-10] MEDS: HYDROcodone/ACETAMIN 5-325 MG TAB (NORCO/ VICODIN) PO PRN ×2 (15:29→23:36)
--- NOTE | 2019-05-10 15:30 | NUR ---
PAIN MEDICATIONS PT COMPLAINING OF LOWER EXTREMITY PAIN. EDUCATED PT ON USES AND SIDE EFFECTS OF NORCO, PT VERBALIZED UNDERSTANDING. PRN NORCO ADMINISTERED. WILL CONTINUE TO MONITOR.
[2019-05-10 16:00] VITALS: BP_SYST 101
--- NOTE | 2019-05-10 16:00 | NUR ---
DR. PARIKH SPOKE W/ VIA PHONE, INFORMED MD THAT PT WAS SEEN BY PHYSICAL THERAPY, PT WAS UNABLE TO WALK DUE TO WEAKNESS AND LOWER EXTREMITY PAIN, PT WAS SEEN BY BEND UP DR. MICHAEL. TO FOLLOW UP WITH DR. MICHAEL. NO ORDERS FOR DISCHARGE AT THIS TIME.
--- NOTE | 2019-05-10 18:30 | NUR ---
WOUND CARE WOUND CARE DONE ON RIGHT ARM, REFER TO [facility] FOR TREATMENT. PT TOLERATED WELL. NO PAIN DURING OR AFTER. PT INCONTINENT OF BOWEL, CLEANED AND CHANGED PT. REPOSITIONED FOR COMFORT.
--- NOTE | 2019-05-10 18:51 | NUR ---
CLOSING NOTE PT AWAKE, RESTING IN BED. PAIN CONTROLLED AT THIS TIME. IV SALINE LOCKED. CALL LIGHT WITHIN REACH, BED IN LOW AND LOCKED POSITION WITH BED ALARM ON. ALL NEEDS MET THROUGHOUT SHIFT. WILL CONTINUE TO MONITOR UNTIL PT CARE IS ENDORSED TO SOAKING PIT OPERATOR RN.
--- NOTE | 2019-05-10 19:22 | NUR ---
Opening Note Received report from kim RN, patient is resting in bed, A/Ox4, no signs of acute distress, even and unlabored breathing on room air, PICC to left arm is saline locked, no complaints of pain at this time. Safety and fall precautions in place, bed locked and in lowest position, bed alarm on, three side rails up, call light with patient, will continue to monitor.
[2019-05-10 20:00] VITALS: BP_SYST 108
--- NOTE | 2019-05-10 20:21 | NUR ---
Med Pass Patient is resting in bed, no signs of acute distress. Educated patient on 2100 scheduled medications uses and potential side effects, patient able to verbalize understanding, administered medications per MD order, patient tolerated well. All safety precautions in place, no complaints of pain, call light with patient, will continue to monitor.
--- NOTE | 2019-05-10 22:32 | NUR ---
Incontinence Care Patient had a small loose BM and voided. Incontinence care rendered by this RN. Patient is clean, dry, and repositioned. No signs of acute distress. All safety precautions in place, call light with patient, will continue to monitor.
--- NOTE | 2019-05-10 23:36 | NUR ---
Pain Patient complains of generalized pain 6/10. PRN Chester 5-325mg (Vicodin 5mg) indicated per MD order for moderate pain. Educated patient on medication uses and potential side effects, patient able to verbalize understanding. Administered medication per MD order. Patient tolerated well. Safety and fall precautions in place, call light with patient, will continue to monitor.
[2019-05-11] VITALS (7 sets, daily range): BP systolic 83–115
--- NOTE | 2019-05-11 01:45 | NUR ---
RN Rounds Patient is resting in bed, eyes closed, no signs of acute distress, tolerating room air, PICC to left arm is saline locked, clean, dry and intact. Safety and fall precautions in place, bed locked and in lowest position, bed alarm on, three side rails up, call light with patient, will continue to monitor.
--- NOTE | 2019-05-11 03:00 | NUR ---
RN Rounds Patient is resting in bed, eyes closed, tolerating room air, no signs of acute distress, no changes to status, PICC to left arm is saline locked, clean, dry and intact. Safety and fall precautions in place, bed locked and in lowest position, bed alarm on, three side rails up, call light with patient, will continue to monitor.
--- NOTE | 2019-05-11 05:02 | NUR ---
Incontinence Care Patient had a small loose BM and voided. Incontinence care rendered by this RN and NITA Sr. Patient is clean, dry, and repositioned. No signs of acute distress. All safety precautions in place, call light with patient, will continue to monitor.
[2019-05-11] MEDS: FUROSEMIDE 40 MG/4 ML VIAL IVP SCH (06:20)
--- NOTE | 2019-05-11 06:34 | NUR ---
Closing Note Patient is resting in bed, eyes closed, no signs of acute distress, even and unlabored breathing on room air, PICC to left arm is saline locked, no complaints of pain at this time. Safety and fall precautions in place and maintained, bed locked and in lowest position, bed alarm on, three side rails up, call light with patient, will endorse care to dayshift RN.
[2019-05-11] MEDS ORDERED: NS 500 ML IV ONE (10:15)
[2019-05-11] MEDS: LACTULOSE 20 GM/30 ML UDC PO SCH ×3 (12:07→21:24)
[2019-05-11] MEDS: RIFAXIMIN 550 MG TABLET PO SCH ×2 (12:07→21:24)
[2019-05-11] MEDS: HYDROcodone/ACETAMIN 5-325 MG TAB (NORCO/ VICODIN) PO PRN (12:08)
[2019-05-11] MEDS: PANTOPRAZOLE SODIUM 40 MG TAB PO SCH ×2 (12:08→21:26)
[2019-05-11] MEDS: cefTRIAXone 1 GM IVPB PREMIX 50 ML IV SCH (12:11)
--- NOTE | 2019-05-11 16:21 | NUR ---
Chicken Buyer: met with pt. to conduct a DCPA. TOYS INSPECTOR introduced self to pt. and daughter who was present. Pt. stated she put off getting herself to the Dr. / hospital because she dreads coming. She gets poked alot and experiences difficulties as the rns. try to find her veins. She agreed to get herself to the Dr./ Hospital as soon as she feels she needs to and not put it off. Pt. told her daughter, Zelda she would do this. Pts. daughter stated she feels her mom would benefit from a trapeze DME so pt can use her arms and gain strength as she helps adjust herself in the bed. TOYS INSPECTOR will mention this to the CM and also stated Zelda can mention this to the Dr. as this would have to be ordered. Pt. has family support as she lives with Zelda. TOYS INSPECTOR will remain available as needed.
--- NOTE | 2019-05-11 16:23 | NUR ---
WOUND EVALUATION: Wound Consult received from Dr. Lantigua. Thank you, Dr. Lantigua, for the consult. Patient received in a Leland Bed with a mattress, awake, alert, and oriented. Patient is unable to turn independently. Shay Score is a 15. Past Medical History: Liver Cirrhosis, Knee replacement, Hysterectomy. Recent Labs: WBC 2.3, RBC 2.21, hemoglobin 7.7, hematocrit 22.9, BUN 51, creatinine 1.73, glucose 108, AST 60, ALT 30, alkaline phosphatase 147, serum total protein 5.6, albumin 1.4, PT 15.6, INR 1.6. Microbiology: Blood culture results 2 in progress. Urine culture results positive for Klebsiella oxytoca, and Citrobacter koseri. Intrinsic factors that delay wound healing: Hypoalbuminemia. Extrinsic factors that delay wound healing: Decreased mobility. Wound Assessment: 1. Right Anterior Forearm Near Antecubital Area: Skin tear, present on admission. Skin tear has 100% pink tissue. No odor, no drainage. Coty-wound intact. Surrounding tissue has ecchymosis. Measures 2.2 cm x 3.5 cm. Recommend: Cleanse wound with normal saline. Apply SurePrep to coty-wound. Cover with oil emulsion dressing, then non-adhesive foam dressing. Perform wound care daily, and as needed for dressing soiling or dislodgement. 2. Right Distal Posterior Forearm: Skin tear, present on admission. Skin tear has 90% pink tissue, 10% red tissue. No odor, scant sanguineous drainage. Coty-wound intact. Surrounding tissue has ecchymosis. Measures 4.5 cm x 3.5 cm. Recommend: Cleanse wound with normal saline. Apply SurePrep to coty-wound. Cover with foam dressing. Perform wound care daily, and as needed for dressing soiling or dislodgement. 3. Right Upper Extremity: Multiple areas of ecchymosis, present on admission. 4. Left Upper Extremity: Multiple areas of ecchymosis, present on admission. Extremity also has non-pitting edema. Recommend: No dressings needed. Continue to monitor sites every shift. Also recommend: Encourage and assist patient with repositioning every 2 hours with pillow support and off-load pressure areas with pillows for pressure re-distribution. Offload, elevate and float bilateral heels with pillows. Perform skin care and monitor skin integrity Q shift. Use moisture cream on buttocks and other moisture susceptible areas QID and as needed for soiling. Place patient on a low air-loss mattress.
--- NOTE | 2019-05-11 20:00 | NUR ---
RECEIVED PT IN BED V/S AND ASSESSMENT DONE , PM HS CARE GIVEN REPOSITIONED MADE COMFORTABLE ,LT HAND DRESSING APPLIED,FAMILY AT BEDSIDE.
--- NOTE | 2019-05-12 | NUR ---
PT REPOSITIONED MADE COMFORTABLE ,FAMILY AT BEDSIDE.
[2019-05-12 04:00] VITALS: BP_SYST 100
[2019-05-12 06:23] VITALS: BP_SYST 100
[2019-05-12 08:00] VITALS: BP_SYST 91
[2019-05-12 09:58] LABS: BASOPHILS % (AUTO) 0.8 % (0.0-2.0); EOSINOPHILS # (AUTO) 0.1 K/uL (0.0-0.4); EOSINOPHILS % (AUTO) 3.8 % (0.0-4.0); HEMATOCRIT 25.3 % (36-48); HEMOGLOBIN 8.4 g/dL (12.0-16.0); LYMPHOCYTES # (AUTO) 0.6 K/uL (1.0-5.5); LYMPHOCYTES % (AUTO) 19.2 % (20.5-51.5); MEAN CORPUSCULAR HEMOGLOBIN 34 pg (27-31); MEAN CORPUSCULAR HGB CONC 33 % (32-36); MEAN CORPUSCULAR VOLUME 103 fL (79.0-98.0); MONOCYTES # (AUTO) 0.4 K/uL (0.0-1.0); MONOCYTES % (AUTO) 12.6 % (1.7-9.3); NEUTROPHILS % (AUTO) 63.6 % (40.0-70.0); PLATELET COUNT (AUTO) 50 K/uL (130-430); RED BLOOD CELL COUNT(AUTO) 2.46 MIL/uL (4.2-6.2); RED CELL DISTRIBUTION WIDTH 18.5 % (9.0-15.0); WHITE BLOOD COUNT (AUTO) 3.2 K/uL (4.8-10.8)
[2019-05-12] MEDS: cefTRIAXone 1 GM IVPB PREMIX 50 ML IV SCH (10:31)
[2019-05-12] MEDS: RIFAXIMIN 550 MG TABLET PO SCH ×2 (10:37→19:57)
[2019-05-12] MEDS: PANTOPRAZOLE SODIUM 40 MG TAB PO SCH ×2 (10:37→19:58)
[2019-05-12] MEDS: HYDROcodone/ACETAMIN 5-325 MG TAB (NORCO/ VICODIN) PO PRN (10:39)
[2019-05-12] MEDS: LACTULOSE 20 GM/30 ML UDC PO SCH ×3 (10:48→20:01)
[2019-05-12 12:47] VITALS: BP_SYST 94
[2019-05-12 16:25] VITALS: BP_SYST 100
[2019-05-12] MEDS: SPIRONOLACTONE 25 MG TABLET (ALDACTONE) PO SCH (19:58)
[2019-05-12] MEDS: FUROSEMIDE 20 MG TABLET PO SCH (19:58)
[2019-05-12 20:00] VITALS: BP_SYST 100
--- NOTE | 2019-05-12 20:00 | NUR ---
received pt in bed v/s and assessment done ,pm care given ,lt picc line in place,pt has loose watery stool.family at bedside,no distress noted at this time.
--- NOTE | 2019-05-13 | NUR ---
pt repositioned made comfortable ,family at bedside
[2019-05-13 00:49] VITALS: BP_SYST 95
[2019-05-13 04:00] VITALS: BP_SYST 105
[2019-05-13 07:12] LABS: BASOPHILS % (AUTO) 0.7 % (0.0-2.0); EOSINOPHILS # (AUTO) 0.1 K/uL (0.0-0.4); EOSINOPHILS % (AUTO) 3.4 % (0.0-4.0); HEMATOCRIT 22.1 % (36-48); HEMOGLOBIN 7.5 g/dL (12.0-16.0); LYMPHOCYTES # (AUTO) 0.7 K/uL (1.0-5.5); LYMPHOCYTES % (AUTO) 22.6 % (20.5-51.5); MEAN CORPUSCULAR HEMOGLOBIN 35 pg (27-31); MEAN CORPUSCULAR HGB CONC 34 % (32-36); MEAN CORPUSCULAR VOLUME 102 fL (79.0-98.0); MONOCYTES # (AUTO) 0.4 K/uL (0.0-1.0); MONOCYTES % (AUTO) 12.6 % (1.7-9.3); NEUTROPHILS # (AUTO) 1.9 K/uL (1.8-7.7); NEUTROPHILS % (AUTO) 60.7 % (40.0-70.0); RED BLOOD CELL COUNT(AUTO) 2.17 MIL/uL (4.2-6.2); RED CELL DISTRIBUTION WIDTH 18.5 % (9.0-15.0); WHITE BLOOD COUNT (AUTO) 3.1 K/uL (4.8-10.8)
[2019-05-13 07:29] LABS: ALANINE AMINOTRANSFERASE 36 U/L (12-78); ALBUMIN 1.4 g/dL (3.4-4.8); ANION GAP 4 (5-15); ASPARTATE AMINOTRANSFERASE 105 U/L (10-37); CALCIUM 7.9 mg/dL (8.4-11.0); CHLORIDE 101 mmol/L (98-107); CREATININE 2.74 mg/dL (0.55-1.30); GLUCOSE 95 mg/dL (70-99); POTASSIUM 5.1 mmol/L (3.5-5.1); SODIUM SERUM 133 mmol/L (136-145); TOTAL BILIRUBIN 3.1 mg/dL (0.0-1.0); UREA NITROGEN, BLOOD 61 mg/dL (8-21)
[2019-05-13 08:00] VITALS: BP_SYST 95
--- NOTE | 2019-05-13 08:00 | NUR ---
received awake and in no c/o discomfort vss resp even and unlabored.picc to lt arm patent jaundice color to skin noted tele sr taking diet well continue to monitor
[2019-05-13 08:19] LABS: PLATELET COUNT (AUTO) 56 K/uL (130-430)
[2019-05-13] MEDS: cefTRIAXone 1 GM IVPB PREMIX 50 ML IV SCH (08:30)
[2019-05-13] MEDS: LACTULOSE 20 GM/30 ML UDC PO SCH ×3 (08:30→20:32)
[2019-05-13] MEDS: RIFAXIMIN 550 MG TABLET PO SCH ×2 (08:32→20:33)
[2019-05-13] MEDS: MULTIVITAMINS TAB 1 TABLET PO SCH (08:32)
[2019-05-13] MEDS: PANTOPRAZOLE SODIUM 40 MG TAB PO SCH ×2 (08:32→20:33)
[2019-05-13] MEDS: FUROSEMIDE 20 MG TABLET PO SCH ×2 (08:32→20:32)
[2019-05-13] MEDS: SPIRONOLACTONE 25 MG TABLET (ALDACTONE) PO SCH ×2 (09:00→20:33)
[2019-05-13] MEDS ORDERED: GABAPENTIN 100 MG CAPSULE PO ONE (09:45)
[2019-05-13 12:00] VITALS: BP_SYST 96
[2019-05-13 16:00] VITALS: BP_SYST 101
--- NOTE | 2019-05-13 18:40 | NUR ---
remains in no c/o discomfort at this time.taking diet fairly well vss resp even tele sr.encouraged to reposition self but needs help q2h.call mandujano in place
--- NOTE | 2019-05-13 19:17 | NUR ---
REPORT TO ELECTRIC ORGAN ASSEMBLER AND CHECKER GIVEN
[2019-05-13 20:00] VITALS: BP_SYST 124
--- NOTE | 2019-05-13 20:00 | NUR ---
received pt in bed v/s and assessment same charted ,picc line in place ,pm care given ,repositioned made comfortable
[2019-05-13] MEDS: GABAPENTIN 100 MG CAPSULE PO SCH (20:33)
--- NOTE | 2019-05-14 | NUR ---
repositioned made comfortable no distress noted
[2019-05-14 01:45] VITALS: BP_SYST 109
--- NOTE | 2019-05-14 02:30 | NUR ---
medicated for pain with good effect
[2019-05-14] MEDS: HYDROcodone/ACETAMIN 5-325 MG TAB (NORCO/ VICODIN) PO PRN (02:32)
[2019-05-14 04:00] VITALS: BP_SYST 110
[2019-05-14 08:01] VITALS: BP_SYST 90
[2019-05-14 08:20] LABS: BASOPHILS % (AUTO) 0.8 % (0.0-2.0); EOSINOPHILS # (AUTO) 0.1 K/uL (0.0-0.4); EOSINOPHILS % (AUTO) 3.2 % (0.0-4.0); HEMOGLOBIN 7.2 g/dL (12.0-16.0); LYMPHOCYTES # (AUTO) 0.8 K/uL (1.0-5.5); LYMPHOCYTES % (AUTO) 26.3 % (20.5-51.5); MEAN CORPUSCULAR HEMOGLOBIN 34 pg (27-31); MEAN CORPUSCULAR HGB CONC 33 % (32-36); MEAN CORPUSCULAR VOLUME 103 fL (79.0-98.0); MONOCYTES # (AUTO) 0.4 K/uL (0.0-1.0); MONOCYTES % (AUTO) 13.7 % (1.7-9.3); NEUTROPHILS # (AUTO) 1.7 K/uL (1.8-7.7); PLATELET COUNT (AUTO) 54 K/uL (130-430); RED BLOOD CELL COUNT(AUTO) 2.12 MIL/uL (4.2-6.2); RED CELL DISTRIBUTION WIDTH 18.3 % (9.0-15.0)
[2019-05-14 08:23] LABS: ALANINE AMINOTRANSFERASE 36 U/L (12-78); ALBUMIN 1.4 g/dL (3.4-4.8); ANION GAP 5 (5-15); ASPARTATE AMINOTRANSFERASE 95 U/L (10-37); CALCIUM 7.9 mg/dL (8.4-11.0); CHLORIDE 100 mmol/L (98-107); CREATININE 3.18 mg/dL (0.55-1.30); GLUCOSE 92 mg/dL (70-99); POTASSIUM 5.1 mmol/L (3.5-5.1); SODIUM SERUM 131 mmol/L (136-145); TOTAL BILIRUBIN 2.9 mg/dL (0.0-1.0); UREA NITROGEN, BLOOD 69 mg/dL (8-21)
[2019-05-14 09:20] LABS: HEMATOCRIT 21.8 % (36-48)
[2019-05-14] MEDS: GABAPENTIN 100 MG CAPSULE PO SCH (09:39)
[2019-05-14] MEDS: MULTIVITAMINS TAB 1 TABLET PO SCH (09:39)
[2019-05-14] MEDS: PANTOPRAZOLE SODIUM 40 MG TAB PO SCH (09:39)
[2019-05-14] MEDS: LACTULOSE 20 GM/30 ML UDC PO SCH ×2 (09:40→14:34)
[2019-05-14] MEDS: cefTRIAXone 1 GM IVPB PREMIX 50 ML IV SCH (09:40)
--- NOTE | 2019-05-14 09:44 | NUR ---
Routine Patient resting comfortably in bed with no complaint of pain at this time. Scheduled medications given per order. Patient stable at this time.
[2019-05-14 12:30] VITALS: BP_SYST 90
--- NOTE | 2019-05-14 14:39 | NUR ---
Routine Scheduled medication given per order. Patient stable with daughter and niece at bedside.
[2019-05-14 15:09] VITALS: BP_SYST 91
--- NOTE | 2019-05-14 15:25 | NUR ---
Called report Called report to Nancy Chowdary RN at [facility] . Patient will go to Room 217A.
--- NOTE | 2019-05-14 15:40 | NUR ---
Discharge Patient transferred in stable condition via ambulance to [facility], Room 217[facility].
[2019-05-14 15:56] VITALS: BP_SYST 91
== END 2019-05-14 15:40 | DRG 441 ==
LOC: SED 10:20 → STU 15:29
PROVIDERS: ADMIT Internal Medicine Hospice and Palliative Medicine; ATTEND Internal Medicine Hospice and Palliative Medicine
PROC: 02HV33Z Insertion of Infusion Device into Superior Vena Cava, Percutaneous Approach (ICD-10-PCS; principal; 2019-05-08)
PROC: B548ZZA Ultrasonography of Superior Vena Cava, Guidance (ICD-10-PCS; 2019-05-08)
DX: K72.90 Hepatic failure, unspecified without coma (principal); K76.7 Hepatorenal syndrome; N17.9 Acute kidney failure, unspecified; N39.0 Urinary tract infection, site not specified; D61.818 Other pancytopenia; D68.59 Other primary thrombophilia; E46 Unspecified protein-calorie malnutrition; K76.6 Portal hypertension; R18.8 Other ascites; K75.81 Nonalcoholic steatohepatitis (NASH); K74.60 Unspecified cirrhosis of liver; Z96.659 Presence of unspecified artificial knee joint; G62.9 Polyneuropathy, unspecified; D69.6 Thrombocytopenia, unspecified; I10 Essential (primary) hypertension; K44.9 Diaphragmatic hernia without obstruction or gangrene; Z79.899 Other long term (current) drug therapy; Z90.710 Acquired absence of both cervix and uterus; Z91.041 Radiographic dye allergy status; Z88.5 Allergy status to narcotic agent; Z91.013 Allergy to seafood; Z68.27 Body mass index [BMI] 27.0-27.9, adult
CPT/HCPCS: 36415; 71045; 76700-TC; 80053; 80307; 81000-TC; 82140-TC; 82150-TC; 82550-TC; 82607; 83605; 83690-TC; 83880; 84443-TC; 84484; 85007; 85025; 85027; 85610-TC; 85730-TC; 87040-TC; 87086; 87186-TC; 93005; 96365; 96375; 97110-GP; 97112-GP; 97530-GP; 99285; C1751; G0378; G0482; J0696; J1940; J7040; J7050